=== PATIENT | female | born 1945 | race Caucasian/White ===

== ENCOUNTER 2016-06-03 | Inpatient (IN) | payer MEDICARE, OTHER ==
[~2016-06-03] VITALS: Ht 152.4 cm; Wt 82.6 kg
[2016-06-03 01:51] LABS: HEMOGLOBIN 16.6 gm/dl (12.3-15.3); RED BLOOD COUNT 5.63 M/UL (4.00-5.10); WHITE BLOOD COUNT 18.5 K/UL (4.5-11.0)
[2016-06-03] MEDS ORDERED: DILTIAZEM 24HR180 MG PO (06:16)
[2016-06-03] MEDS ORDERED: ATIVAN0.5 MG PO (06:17)
[2016-06-03] MEDS ORDERED: LOTENSIN TAB 1010 MG PO (06:18)
[2016-06-03] MEDS ORDERED: CATAPRES 0.1MG0.1 MG PO (06:18)
[2016-06-03] MEDS ORDERED: DIGOX125 MCG PO (06:19)
[2016-06-03] MEDS ORDERED: LASIX20 MG PO (06:20)
[2016-06-03] MEDS ORDERED: FLOVENT DISKU100 MCG INH (06:20)
[2016-06-03] MEDS ORDERED: NEURONTIN 100100 MG PO (06:20)
[2016-06-03] MEDS ORDERED: METOPROLOL TAR100 MG PO (06:21)
[2016-06-03] MEDS ORDERED: POTASSIUM CHLO20 ME1 PO (06:23)
[2016-06-03] MEDS ORDERED: ELIQUIS 5 MG TAB5 MG PO (06:25)
[2016-06-03] MEDS ORDERED: VITAMIN A AND1 EACH PO (06:25)
[2016-06-04 03:33] LABS: HEMOGLOBIN 15.5 gm/dl (12.3-15.3); RED BLOOD COUNT 5.18 M/UL (4.00-5.10)
[2016-06-05 03:44] LABS: HEMOGLOBIN 14.3 gm/dl (12.3-15.3)
[2016-06-06 03:57] LABS: HEMOGLOBIN 14.6 gm/dl (12.3-15.3); RED BLOOD COUNT 4.86 M/UL (4.00-5.10); WHITE BLOOD COUNT 16.5 K/UL (4.5-11.0)
[2016-06-06 04:26] LABS: BUN/CREATININE RATIO 23 (0-10)
[2016-06-06] MEDS ORDERED: CORDARONE 200M200 MG PO ×2 (13:35→13:36)
[2016-06-06] MEDS ORDERED: LOPRESSOR50 MG PO (13:37)
[2016-06-06] MEDS ORDERED: METOPROLOL TART50 MG PO (14:01)
[2016-09-30] MEDS ORDERED: VALACYCLOVIR1000 MG PO (22:42)
[2016-09-30] MEDS ORDERED: NORCO 5-325 TA1 EACH PO (22:43)
[2016-09-30] MEDS ORDERED: PRAVASTATIN SOD40 MG PO (22:43)
[2016-09-30] MEDS ORDERED: ADVAIR 250-501 EACH INH (22:44)
[2016-10-05] MEDS ORDERED: LEVAQUIN250 MG PO (16:08)
[2016-10-05] MEDS ORDERED: FLAGYL500 MG PO (16:09)
[2016-10-05] MEDS ORDERED: LYRICA50 MG PO (16:11)
== END 2016-06-06 19:19 | disposition home or self-care (01) | DRG 310 ==
LOC: ER1 → ZEROF 05:30 → PROG CARE 05:30 → CCU 06:16 → PROG CARE 16:55
PROVIDERS: Emergency Medicine; Family Medicine; Hospitalist; ADMIT Internal Medicine
PROC: B5131ZA Fluoroscopy of Right Jugular Veins using Low Osmolar Contrast, Guidance (ICD-10-PCS; principal; 2016-06-03)
PROC: 05HM33Z Insertion of Infusion Device into Right Internal Jugular Vein, Percutaneous Approach (ICD-10-PCS; principal; 2016-06-03)
PROC: 5A2204Z Restoration of Cardiac Rhythm, Single (ICD-10-PCS; 2016-06-06)
DX: I48.0 Paroxysmal atrial fibrillation (principal); I48.92 Unspecified atrial flutter; I49.5 Sick sinus syndrome; G90.09 Other idiopathic peripheral autonomic neuropathy; R07.9 Chest pain, unspecified; I10 Essential (primary) hypertension; R53.81 Other malaise; J45.909 Unspecified asthma, uncomplicated; G47.33 Obstructive sleep apnea (adult) (pediatric); Z79.01 Long term (current) use of anticoagulants; Z95.0 Presence of cardiac pacemaker; Z88.0 Allergy status to penicillin; Z88.2 Allergy status to sulfonamides; Z88.5 Allergy status to narcotic agent; Z88.3 Allergy status to other anti-infective agents; Z79.899 Other long term (current) drug therapy; Z82.49 Family history of ischemic heart disease and other diseases of the circulatory system; Z87.891 Personal history of nicotine dependence
CPT/HCPCS: 36415; 71010; 80048; 80053; 80076; 82550; 82553; 83735; 83874; 84439; 84443; 84484; 85014; 85018; 85025; 85027; 93005; 96374; 97535; 99284; C1751; J1200; J2250; J2270; J7050

== ENCOUNTER → 2016-06-13 | Outpatient (CLI) | payer MEDICARE, OTHER ==
[~2016-06-13] MED LIST: ADVAIR 250-501 EACH INH; ATIVAN0.5 MG PO; CATAPRES 0.1MG0.1 MG PO; CORDARONE 200M200 MG PO; DIGOX125 MCG PO; DILTIAZEM 24HR180 MG PO; ELIQUIS 5 MG TAB5 MG PO; FLAGYL500 MG PO; FLOVENT DISKU100 MCG INH; LASIX20 MG PO; LEVAQUIN250 MG PO; LOPRESSOR50 MG PO; LOTENSIN TAB 1010 MG PO; LYRICA50 MG PO; METOPROLOL TAR100 MG PO; METOPROLOL TART50 MG PO; NEURONTIN 100100 MG PO; NORCO 5-325 TA1 EACH PO; POTASSIUM CHLO20 ME1 PO; PRAVASTATIN SOD40 MG PO; VALACYCLOVIR1000 MG PO; VITAMIN A AND1 EACH PO
== END ==
LOC: HEART 5 08:47
DX: R00.2 Palpitations (principal); R06.02 Shortness of breath; R07.9 Chest pain, unspecified; R50.9 Fever, unspecified; Z87.891 Personal history of nicotine dependence; R94.2 Abnormal results of pulmonary function studies
CPT/HCPCS: 94060; 94729